=== PATIENT | male | born 1995 | race Caucasian/White ===

== ENCOUNTER 2018-03-16 07:30 | Emergency (ER) | payer SELFPAY ==
[~2018-03-16 07:30] MED LIST: ACE3 PO; ACE325S PR; ALB17R INH; ASCO250T85 PO; AZIT500T47 PO; DOC100 PO; FLU10 PO; HYCOTUSS; IBU600 PO; LISD30PT PO; NO ROUTINE MEDS; TRAZ50 PO; ZINC50TA3 PO
[2018-03-16] MEDS ORDERED: NS 0.9% IR ONE (07:45)
[2018-03-16] MEDS ORDERED: DIPHTH/TETANUS/ACEL. PERTUSSIS IM ONLY ONE (07:45)
--- NOTE | 2018-03-16 07:51 | ER Report ---
History and Physical Time Seen By MD: 07:40 Hx. of Stated Complaint: Injury to right hand yesterday from chainsaw HPI/ROS CHIEF COMPLAINT: injury to r hand yesterday HISTORY OF PRESENT ILLNESS: Patient is right hand dominant male who was using a chain saw yesterday when it kicked back and struck the dorsum of his right middle, ring, small finger. Patient irrigated with water and saline and covered with bandages. This morning patient presents because he is having some throbbing especially from the ring finger. Patient states pain is moderate, has not taken anything for the pain. Patient has no numbness or weakness. Patient denies fevers or chills or purulent drainage. Patient does not have other injury, chest pain, shortness breath. REVIEW OF SYSTEMS: Respiratory: No cough, no dyspnea. Cardiovascular: No chest pain, no palpitations. Gastrointestinal: No vomiting, no abdominal pain. Musculoskeletal: No back pain. Remainder of the 14 system rev: Yes Allergies: Coded Allergies: No Known Allergies (Verified Allergy, Mild, 03/16/18) Home Meds Active Scripts Bacitracin, Micronized (BACITRACIN) 1 Gm Powder, 1 GM MC Q12H for 7 Days, #1 TUBE Prov:MEETA STEWART MD 03/16/18 Cephalexin 500 Mg Tab (KEFLEX 500 MG TAB) 500 Mg Tablet, 500 MG PO Q12H for 5 Days, #10 TAB Prov:MEETA STEWART MD 03/16/18 Discontinued Reported Medications [none] No Conflict Check 03/30/13 Reviewed Nurses Notes: Yes Old Medical Records Reviewed: Yes Hx Smoking: No Hx Alcohol Use: No Constitutional Vital Sign - Last 24 Hours 03/16/18 07:33 Temp 97.7 Pulse 57 Resp 16 B/P (MAP) 155/55 Pulse Ox 98 O2 Delivery Room Air Physical Exam General Appearance: The patient is alert, has no immediate need for airway protection and no current signs of toxicity. [ ] Eyes: Pupils equal and round no injection. Respiratory: Chest is non tender, lungs are clear to auscultation. Cardiac: regular rate and rhythm Musculoskeletal: Extremities have full range of motion and are non tender. Skin: avulsion to pip of l middle finger, FROM, no fb. 1cm laceration to radial aspect of PIP of ring finger. FROM, nl sensation. Sm avulsion to pip of small finger. FROM [ ] [DIFFERENTIAL DIAGNOSIS: After history and physical exam differential diagnosis was considered for fb, bone, tendon, joint involvement, nerve or vessel damage Medical Decision Making EKG/Imaging Imaging X-ray: right hand was obtained. I viewed the images myself on the PACS system. My interpretation of the images is: no fracture or foreign body. The radiologist interpretation had no clinically significant variation from this interpretation. ED Course/Re-evaluation ED Course Patient presents over 12 hours after lacerations to right hand from [facility]. Patient wash at home and there is no gross contamination, however we re- irrigated with copious irrigation at the bedside. No foreign body noted. Patient has full range of motion and no evidence of tendon injury on evaluation. Patient does appear to have joint capsule compromise in the right mid finger PIP. X-ray does not show foreign body or fracture. Therefore patient given antibiotics for prophylaxis and very strict return precautions. Patient does not want to have injury sutured and at this point that is probably reasonable as we will have him monitor very closely for signs of infection. Decision to Disposition Date: Mar 16, 2018 Decision to Disposition Time: 08:24 Depart Departure Latest Vital Signs Vital Signs Date Time Temp Pulse Resp B/P (MAP) Pulse Ox O2 Delivery O2 Flow Rate FiO2 03/16/18 07:33 97.7 57 16 155/55 98 Room Air Impression: Primary Impression: Laceration of right hand Condition: Improved Disposition: HOME OR SELF-CARE Referrals: FATEMEH WHATLEY MD (PCP) New Scripts Bacitracin, Micronized (BACITRACIN) 1 Gm Powder 1 GM MC Q12H for 7 Days, #1 TUBE Prov: MEETA STEWART MD 03/16/18 Cephalexin 500 Mg Tab (KEFLEX 500 MG TAB) 500 Mg Tablet 500 MG PO Q12H for 5 Days, #10 TAB Prov: MEETA STEWART MD 03/16/18 Patient Instructions: Finger Laceration (ED) Additional Instructions: as we discussed, you do have a moderate risk for infection; please return immediately for worsening symptoms, swelling, uncontrolled pain, or any concerns. Problem Qualifiers Primary Impression: Laceration of right hand Encounter type: initial encounter Foreign body presence: without foreign body Qualified Codes: S61.411A - Laceration without foreign body of right hand, initial encounter MEETA STEWART MD Mar 16, 2018 07:51
[2018-03-16] MEDS ORDERED: CEPHALEXIN MONO 500 MG CAP PO ONE (08:00)
--- NOTE | 2018-03-16 08:13 | RADIOLOGY IMAGING REPORT ---
FACILITY: [facility] PATIENT NAME: Sergio Maritn : 1995 MR: [id number] V: [id number] EXAM DATE: ORDERING PHYSICIAN: MEETA STEWART TECHNOLOG[place]: [place] [facility] [place] : 1995 Visit/Account:[id number] Date of Sevice: 03/16/2018 HAND COMPLETE RIGHT History: Hand versus chainsaw. Laceration of digits 3, 4 and 5. Comparison study: None. Findings: There is no fracture or dislocation involving the right hand. Soft tissue injury is subtl e in the third digit. There is no radiopaque foreign body. IMPRESSION: No findings of a bony injury following a chain saw laceration. Soft tissue injury to the third digit. No radiopaque foreign body seen. Report Dictated By: Burak Ivy MD at 03/16/2018 8:07 AM Report E-Signed By: Burak Ivy MD at 03/16/2018 8:08 AM WSN:[id number]
[2018-03-16] MEDS ORDERED: BACITRACIN OINT 0.9 GM PKT TP ONE (08:15)
[2018-03-16] MEDS ORDERED: CEPH500T7 PO (08:21)
[2018-03-16] MEDS ORDERED: BACI1POW4 MC (08:21)
[2018-03-16 08:25] VITALS: BP 126/63
== END 2018-03-16 08:25 | disposition home or self-care (01) ==
LOC: ER 07:46
DX: S61.411A Laceration without foreign body of right hand, initial encounter (principal)
CPT/HCPCS: 73130; 90471; 90715; 99283; C9399

== ENCOUNTER 2018-04-26 07:05 | Observation (INO) | payer OTHER ==
[~2018-04-26] VITALS: Ht 182.9 cm; Wt 66.8 kg
[2018-04-26] MEDS ORDERED: DIPHTH/TETANUS/ACEL. PERTUSSIS IM ONE (07:10)
[2018-04-26] MEDS ORDERED: NS(*) 0.9% 1000 ML BAG 1,000 ML IV ONE (07:10)
[2018-04-26 07:35] LABS: PLATELET COUNT, AUTOMATED 255 K/uL (150-450)
[2018-04-26 07:39] LABS: INR 1.16
[2018-04-26] MEDS ORDERED: IOPAMIDOL 76% 75 ML INFUS BTL 75 ML ONE (07:43)
--- NOTE | 2018-04-26 08:04 | EKG ---
[place] [facility] [place]IENT NAME: NUSRAT JESSICAXVIII : [id number] MR: [id number] V: [id number] EXAM DATE: ORDERING PHYSICIAN: VALE WALLER TECHNOLOGIST: Test Reason : AMS Blood Pressure : / mmHG Vent. Rate : 093 BPM Atrial Rate : 093 BPM P-R Int : 126 ms QRS Dur : 086 ms QT Int : 362 ms P-R-T Axes : 059 080 068 degrees QTc Int : 450 ms Normal sinus rhythm Normal ECG No previous ECGs available Confirmed by FATEMEH PIZARRO ([id number]) on 04/26/2018 12:14:17 PM Referred By: Confirmed By:FATEMEH PIZARRO
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
--- NOTE | 2018-04-26 08:36 | RADIOLOGY IMAGING REPORT ---
FACILITY: [facility] PATIENT NAME: Reggie Dave : 1995 MR: [id number] V: [id number] EXAM DATE: ORDERING PHYSICIAN: VALE WALLER TECHNOLOGIST: Location: [facility] - [place] Patient: Reggie Dave : 1995 Visit/Account:[id number] Date of Sevice: 04/26/2018 EXAMINATION: CT head without IV contrast HISTORY: Trauma. COMPARISON: None. TECHNIQUE: Contiguous axial images were obtained from the skull base to the vertex without intraven ous contrast. Sagittal and coronal reformatted images are also submitted. One of the following dose optimization techniques was utilized in the performance of this exam: Autom ated exposure control; adjustment of the mA and/or kV according to the patient's size; or use of an i terative reconstruction technique. Specific details can be referenced in the facility's radiology C T exam operational policy. FINDINGS: Brain volume: Normal. Ventricles: Normal. Acute ischemic changes: None. Hemorrhage: None. Masses/edema: There is a 1.1 x 0.9 cm arachnoid cyst in the left frontotemporal region. [place]-white: Negative. White matter: Normal. Vessels: Negative. Extra-axial: The cerebellar tonsils are low and are incompletely visualized, with mild effacement of the dorsal cervicomedullary junction. Calvarium/scalp: Left frontal soft tissue contusion and laceration, and scalp contusion at the left vertex. No acute fracture. There is smooth bony scalloping in the left frontotemporal region adjacent to the arachnoid cyst. Skull base/visualized face: Negative. Visualized sinuses/orbits: Minimal mucosal thickening in the right maxillary sinus. No air-fluid lev els. IMPRESSION: 1. Significant scalp contusion and hematoma at the left vertex, and laceration in the left frontal re gion. 2. No acute fracture or hemorrhage. No CT evidence of acute infarct. 3. 1.1 x 0.9 cm incidental benign arachnoid cyst in the left frontotemporal region. 4. 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 Nonurgent, noncontrast brain MRI is rec ommended for further evaluation. Report Dictated By: Liza Caro MD at 04/26/2018 8:27 AM Report E-Signed By: Liza Caro MD at 04/26/2018 8:32 AM WSN:[id number]
--- NOTE | 2018-04-26 08:48 | RADIOLOGY IMAGING REPORT ---
[place] [facility] [place] Reggie Dave : 1995 MR: [id number] V: [id number] EXAM DATE: ORDERING PHYSICIAN: VALE WALLER TECHNOLOGIST: Location: [facility] - [place] Patient: Reggie Dave : 1995 Visit/Account:[id number] Date of Sevice: 04/26/2018 EXAMINATION: CT cervical spine without IV contrast HISTORY: Trauma. COMPARISON: None. TECHNIQUE: Axial images were obtained from the skull base through the upper thoracic spine without I V contrast administration. Coronal and sagittal reformatted images were obtained from the axial [facility] e data. One of the following dose optimization techniques was utilized in the performance of this exam: Autom ated exposure control; adjustment of the mA and/or kV according to the patient's size; or use of an i terative reconstruction technique. Specific details can be referenced in the facility's radiology C T exam operational policy. FINDINGS: Alignment: There is mild leftward curvature at the cervicothoracic junction. No focal listhesis. 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 Mi ld bony spurring at this anomalous articulation. Vertebral bodies: There is mild narrowing of the AP diameter of the C5-T2 vertebral bodies. No acute fracture. Posterior elements: There is left uncovertebral hypertrophy at C3-4 and C4-5. Anomalous narrowing bet ween the C5-6 and T1-T2 spinous processes. 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 Hardware: None. Disc spaces: Narrowing of the T1-2 disc. Mild disc bulges at C3-4 and C4-5 on soft tissue windows, wi th mild central canal stenosis at C4-5. Soft tissues: Negative. Visualized upper chest: Patchy consolidation at the lung apices. The right styloid process is elongated measuring 4.5 cm. IMPRESSION: 1. No acute fracture of the cervical spine. 2. 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 3. Mild disc bulges and left uncovertebral hypertrophy at C3-4 and C4-5, with mild spinal stenosis at C4-5. 4. 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 5. Patchy consolidation at the lung apices is suspicious for aspiration. Report Dictated By: Liza Caro MD at 04/26/2018 8:32 AM Report E-Signed By: Liza Caro MD at 04/26/2018 8:44 AM WSN:[id number]
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
[2018-04-26] MEDS ORDERED: ONDANSETRON 4 MG/2 ML VIAL IVP PRN (09:20)
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
[2018-04-26] MEDS ORDERED: fentaNYL CITR 100 MCG/2 ML AMP IVP ONE (10:45)
[2018-04-26 11:07] VITALS: BP_SYST 107; BP_SYST 43; BP_DIAS 43
[2018-04-26] MEDS: ACETAMINOPHEN(*)1000 MG/100 ML 100 ML IVPB SCH ×3 (11:37→23:27)
[2018-04-26] MEDS: KCL/D1/2NS 20 MEQ 1000 ML 1,000 ML IV PRN ×2 (11:37→20:36)
[2018-04-26] MEDS: FAMOTIDINE 20 MG TAB PO SCH ×2 (11:42→20:35)
[2018-04-26] MEDS: DOCUSATE SODIUM 100 MG CAP PO SCH ×2 (11:43→20:35)
[2018-04-26] MEDS: KETOROLAC 15 MG/ML VIAL IVP SCH ×2 (12:41→18:10)
[2018-04-26 15:38] VITALS: BP 104/48
[2018-04-26 23:01] VITALS: BP 107/62
[2018-04-27] MEDS: KETOROLAC 15 MG/ML VIAL IVP SCH ×4 (00:30→17:18)
[2018-04-27 04:14] VITALS: BP 114/58
[2018-04-27] MEDS: ACETAMINOPHEN(*)1000 MG/100 ML 100 ML IVPB SCH (04:37)
--- NOTE | 2018-04-27 06:20 | RADIOLOGY IMAGING REPORT ---
FACILITY: [facility] PATIENT NAME: Sergio Martin : 1995 MR: [id number] V: [id number] EXAM DATE: ORDERING PHYSICIAN: CT MCLEOD TECHNOLOGIST: Location: [facility] Patient: Sergio Martin : 1995 Visit/Account:[id number] Date of Sevice: 04/27/2018 EXAMINATION: Portable AP Chest HISTORY: Pulmonary contusion. COMPARISON: 04/26/2018. FINDINGS: Improved aeration in the lungs, with some persistent slight patchy parenchymal density in the mid lef t lung. No progressive consolidation. No pleural effusion or pneumothorax. Normal cardiomediastinal silhouette. Visualized osseous structures appear intact. IMPRESSION: 1. Improved aeration of the lungs. There is some persistent mild patchy density in the mid left lung. 2. No other new findings in the chest. Report Dictated By: Lalit Martin MD at 04/27/2018 6:13 AM Report E-Signed By: Lalit Martin MD at 04/27/2018 6:15 AM WSN:[id number]
[2018-04-27 06:55] VITALS: BP 89/58
[2018-04-27] MEDS: FAMOTIDINE 20 MG TAB PO SCH (09:10)
[2018-04-27] MEDS: DOCUSATE SODIUM 100 MG CAP PO SCH (09:10)
--- NOTE | 2018-04-27 10:48 | RADIOLOGY IMAGING REPORT ---
FACILITY: [facility] PATIENT NAME: Sergio Martin : 1995 MR: [id number] V: [id number] EXAM DATE: ORDERING PHYSICIAN: CT MCLEOD TECHNOLOGIST: Location: [facility] [place] Patient: Sergio Martin : 1995 Visit/Account:[id number] Date of Sevice: 04/27/2018 BRAIN W/O CONTRAST Comparisons: Head CT scan without contrast dated April 26, 2018 Additional pertinent history: Congenital malformation. TECHNIQUE: Multiplanar, multisequence brain MRI was performed without gadolinium contrast. FINDINGS: Sagittal midline structures and craniocervical junction: Findings of a Chiari I malformation with the cerebellar tonsils extending 1.6 cm below the foramen magnum. The visualized portions of the upper cervical spinal cord are unremarkable. Midline shift: None. Ventricles: Negative. Brain parenchyma: Diffusion weighted imaging: Negative. Gradient sequence: Negative. T2 weighted FLAIR images: Negative. Extra-axial spaces: Negative. Dural venous sinuses and major arterial flow voids: Negative. Mastoid air cells and paranasal sinuses: Mild mucosal thickening involving both maxillary sinuses. O therwise negative Surrounding soft tissues and orbits: Negative. Impression: 1. Prominent Chiari I malformation. 2. No other acute intracranial pathology. Report Dictated By: Rashaad Kiser MD at 04/27/2018 10:41 AM Report E-Signed By: Rashaad Kiser MD at 04/27/2018 10:44 AM WSN:[id number]
[2018-04-27 11:26] VITALS: BP 99/61
[2018-04-27] MEDS: KCL/D1/2NS 20 MEQ 1000 ML 1,000 ML IV PRN (14:30)
[2018-04-27 14:45] VITALS: BP 121/60
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
== END 2018-04-27 18:24 | disposition short-term general hospital (02) ==
LOC: EDSEX 07:08 → EDBD 07:08 → ER 07:08 → INTOOBSV 10:11 → MERGE 10:11 → MED 10:11
PROVIDERS: ADMIT Surgery; ATTEND Surgery
DX: S27.321A Contusion of lung, unilateral, initial encounter (principal); S14.0XXA Concussion and edema of cervical spinal cord, initial encounter; G93.5 Compression of brain; F10.10 Alcohol abuse, uncomplicated; R20.3 Hyperesthesia; V49.88XA Car occupant (driver) (passenger) injured in other specified transport accidents, initial encounter; Y92.410 Unspecified street and highway as the place of occurrence of the external cause; Y99.8 Other external cause status; Y90.5 Blood alcohol level of 100-119 mg/100 ml
CPT/HCPCS: 12013; 36415; 70450; 70551; 71045; 71260; 72125; 72141; 72170; 73030; 74177; 80305; 80320; 81001; 82150; 83605; 83690; 84703; 85025; 85610; 85730; 86850; 86900; 86901; 93005; 99285; G0378; J0131; J1885; J3010; J3480; J7030; Q9967; 82040; 82247; 82310; 82374; 82435; 82565; 82947; 84075; 84132; 84155; 84295; 84450; 84460; 84520; 96361; 96374

== ENCOUNTER → 2018-04-26 | Outpatient (CLI) | payer OTHER ==
[~2018-04-26] MED LIST changes: +BACI1POW4 MC; +CEPH500T7 PO
== END ==
LOC: AMB 06:37
PROVIDERS: ATTEND Nurse Practitioner
DX: M54.9 Dorsalgia, unspecified (principal); M25.552 Pain in left hip; M25.551 Pain in right hip; M79.602 Pain in left arm; M79.601 Pain in right arm; M54.2 Cervicalgia; S09.90XA Unspecified injury of head, initial encounter; V49.88XA Car occupant (driver) (passenger) injured in other specified transport accidents, initial encounter
CPT/HCPCS: A0425; A0427

== ENCOUNTER → 2018-04-27 | Outpatient (REF) | LOC: AMB 18:33 | PROVIDERS: ATTEND Nurse Practitioner | DX: S39.92XA Unspecified injury of lower back, initial encounter (principal) ==